=== PATIENT | female | born 1960 | race Hispanic/Latino ===

== ENCOUNTER → 2024-11-30 | Day surgery (SDC) | payer OTHER ==
[~2024-11-30] MED LIST: B12 ACTIVE1000 MCG; CALCIUM ACETAT667 MG PO; D3-5000125 MCG; FENTANYL CITRATE/PF 100MCG/2 ML INJ ONE; HRT BLADIN; HYOSCYAMINE SULFATE 0.5 MG/ML INJ ONE; KELP150 MCG; LEVOTHYROXINE100 MC1 PO; LIDOCAINE HCL 2% LOCAL INJ 5 ML SDV VIAL INJ ONE; MULTI-VITAMIN1 EACH PO; OMEGA-31000 MG PO; ONDANSETRON HCL INJ 2MG/ML 2ML 2 MG/ML VIAL ONE; PROPOFOL IV EMULSION 10 MG/ML 20 ML VIAL ONE; UNISOM25 MG PO
[2024-11-30] MEDS: LACTATED RINGER'S 1,000 ML ONE (09:39)
[2024-11-30 12:30] VITALS: BP 108/82; PULSE 70; RESP 16; O2SAT 96
== END | disposition home or self-care (01) ==
LOC: OR 08:34
PROVIDERS: ATTEND Internal Medicine Gastroenterology
DX: Z12.11 Encounter for screening for malignant neoplasm of colon (principal); D12.2 Benign neoplasm of ascending colon; K63.89 Other specified diseases of intestine; R19.5 Other fecal abnormalities; K64.8 Other hemorrhoids; E03.9 Hypothyroidism, unspecified; E66.01 Morbid (severe) obesity due to excess calories; Z71.89 Other specified counseling; Z79.899 Other long term (current) drug therapy; Z01.810 Encounter for preprocedural cardiovascular examination; Z68.31 Body mass index [BMI] 31.0-31.9, adult; Z71.3 Dietary counseling and surveillance
CPT/HCPCS: 45385; 93005; J1980; J2003; J2405; J2704; J3010; J7121; 45378